=== PATIENT | male | born 1950 | race Caucasian/White ===

== ENCOUNTER 2017-03-22 11:37 | Emergency (ER) | payer OTHER ==
[~2017-03-22] VITALS: Ht 162.6 cm; Wt 63.2 kg
[2017-03-22 13:06] VITALS: BP 140/92
== END 2017-03-22 13:41 | disposition home or self-care (01) ==
LOC: EMS 11:40
DX: G51.0 Bell's palsy (principal)
CPT/HCPCS: 99283